=== PATIENT | male | born 1955 | race Caucasian/White ===

== ENCOUNTER 2016-11-13 17:17 | Emergency (ER) | payer BC ==
[2016-11-13] MEDS ORDERED: diPHENhydraMINE IV* 50 MG/ML 1 ml VIAL (BENADRYL) IV ONE (17:47)
[2016-11-13] MEDS ORDERED: Famotidine IV* 10 MG/ML 2 ML (20 mg) IV SLOW PU ONE (17:48)
[2016-11-13] MEDS ORDERED: methylPREDNISolone SOD SUCC* 125 MG 2 ML VIAL IV ONE (17:49)
[2016-11-13] MEDS ORDERED: NS 0.9% 1000 ML* 1,000 ML BOLUS SCH (18:30)
[2016-11-13 19:16] VITALS: BP 137/87
--- NOTE | 2016-11-13 20:26 | UC ---
Mirta Iglesias Janilya, scribed for Sveta Navarro MD on 11/13/16 at 1745 . Allergic Reaction HPI - HPI Summary HPI Summary: A 61 y/o male came in to [facility] presenting w/ a gradual onset of constant Sx of allergic rxn starting this morning at 1000. Pt was eating 2 hard boiled eggs and a jason bar at work when he developed the Sx. Pt reports swelling of lips and inside of his cheeks, and lisp that is abnormal for pt. Pt denies vomiting, diarrhea, any noticeable rashes or hives. No CP, SOB, throat tightening or hoarse voice. Pt denies taking MELISSA-inhibitors. PMHx of asthma on Advair. Has not had an asthma outbreak since 04-02-2001. Pt took one loratadine this afternoon approx 4pm without any improvement. - History of Current Complaint Chief Complaint: UCAllergicReaction Stated Complaint: MOUTH SWELLING,ALLERGIC REACTION Time Seen by Provider: 11/13/16 17:37 Hx Obtained From: Patient Onset/Duration: Gradual Onset, Lasting Days, Still Present Severity Initially: Moderate Severity Currently: Moderate Pain Intensity: 0 Pain Scale Used: 0-10 Numeric Location: Discrete @ - lips, inside mouth Character: Swelling Aggrevating Factor(s): Nothing Alleviating Factor(s): Nothing Associated Signs And Symptoms: Positive: Negative. Negative: Chest Pain, Cough Wheezing, Difficulty Breathing, Hoarseness, Nausea, Rash, Throat Tightening, Vomiting - Related Hx Possible Reaction To: Food - Allergies/Home Medications Allergies/Adverse Reactions: Allergies Allergy/AdvReac Type Severity Reaction Status Date / Time cats Allergy Mild itchy eyes Uncoded 05/17/16 09:08 asthma inducer PMH/Surg Hx/FS Hx/Imm Hx Previously Healthy: No Endocrine History Of: Denies: Diabetes, Thyroid Disease Cardiovascular History Of: Denies: Cardiac Disorders, Hypertension, Congestive Heart Failure Respiratory History Of: Reports: Asthma Denies: COPD GI/ History Of: Denies: Ulcer, Kidney Stones, Renal Disease - hx urinary incontinence - Surgical History Surgical History: Yes Surgery Procedure, Year, and Place: appendectomy,cyst on chest, urinary bladder device to relax bladder implanted 2009 and redone 2014 because of the defaulted battery. - Family History Known Family History: Positive: Hypertension, Other - ischemia of intestines - father - Social History Lives: With Family Alcohol Use: Rare Substance Use Type: None Smoking Status (MU): Never Smoked Tobacco Review of Systems Constitutional: Negative Skin: Other - pt denies any rashes or hives Eyes: Negative ENT: Other - swelling of lips and inside of cheeks, "lisp" Respiratory: Negative Cardiovascular: Negative Gastrointestinal: Negative - pt denies vomiting and diarrhea Genitourinary: Negative Motor: Negative Neurovascular: Negative Musculoskeletal: Negative Neurological: Negative Psychological: Negative All Other Systems Reviewed And Are Negative: Yes Physical Exam Triage Information Reviewed: Yes Appearance: Well-Appearing, No Pain Distress, Well-Nourished, Pain Distress Vital Signs: Initial Vital Signs Temp 98.7 F 11/13/16 17:23 Pulse 88 11/13/16 17:23 Resp 20 11/13/16 17:23 BP 152/97 11/13/16 17:23 Pulse Ox 98 11/13/16 17:23 elevated BP due to acute allergic reaction Vital Signs Reviewed: Yes Eyes: Positive: Conjunctiva Clear ENT: Positive: Hearing grossly normal, Other: - swollen lips and swollen uvula. Negative: Muffled/hoarse voice Neck: Positive: Supple, Nontender, No Lymphadenopathy Respiratory: Positive: Lungs clear, Normal breath sounds, No respiratory distress. Negative: Wheezing Cardiovascular: Positive: RRR, No Murmur, Pulses Normal, Brisk Capillary Refill Musculoskeletal: Positive: Strength Intact, ROM Intact Neurological: Positive: Alert, Muscle Tone Normal Psychological Exam: Normal Skin Exam: Normal Re-Evaluation - Re-Evaluation First Eval Re-Evaluation Time: 19:00 Change: Improved - lips less swollen, can see creases. Pt feels better. Allergic Reaction Course/Dx - Course Course Of Treatment: Pt given benadryl 50mg IV, solumedrol 125mg IV and pepcid 20mg IV with improvement of symptoms. - Differential Dx/Diagnosis Differential Diagnosis/HQI/PQRI: Airway Obstruction, Anaphylaxis, Local Allergic Reaction Provider Diagnoses: Acute generalized allergic reaction. Elevated blood pressure w/o hx of HTN, Allergy-associated Discharge - Discharge Plan Condition: Stable Disposition: HOME Prescriptions: Albuterol HFA INHALER* [Ventolin HFA Inhaler*] 2 puff INH Q4H PRN #1 mdi PRN Reason: Wheezing Famotidine TAB 40 MG(NF) [Pepcid TAB 40 MG(NF)] 40 mg PO DAILY #5 tab predniSONE TAB* [Deltasone TAB*] 40 mg PO DAILY #10 tab Patient Education Materials: General Allergic Reaction (ED) Referrals: Ilir Burr NP [Primary Care Provider] - Sarah Rocha MD [Medical Doctor] - 2 Days Additional Instructions: You should follow up with allergy and asthma associates to help determine what might be the cause of this allergic reaction. Take bendaryl 50mg four times a day for 48 hrs, then as needed. Take the prescribed medications as directed, starting tomorrow. Go to the emergency room if you have any new or worsening symptoms. The documentation as recorded by the Mirta arango Janilya accurately reflects the service I personally performed and the decisions made by , Sveta Navarro MD.
== END 2016-11-13 19:40 | disposition home or self-care (01) ==
LOC: UCEAST 17:17
DX: T78.40XA Allergy, unspecified, initial encounter (principal); X58.XXXA Exposure to other specified factors, initial encounter; R03.0 Elevated blood-pressure reading, without diagnosis of hypertension; J45.909 Unspecified asthma, uncomplicated
CPT/HCPCS: 96360; 96374; 96375; 99212; G0463; J1200; J2930

== ENCOUNTER 2016-12-30 12:16 | Emergency (ER) | payer BC ==
[2016-12-30] MEDS ORDERED: diPHENhydraMINE PO* 50 MG PO ONE (12:27)
[2016-12-30] MEDS ORDERED: EPINEPHrine AMP 1 MG/ML IM ONE (12:27)
[2016-12-30] MEDS ORDERED: methylPREDNISolone 125 MG* 2 ML VIAL IM ONE (12:27)
[2016-12-30 12:35] VITALS: BP 106/84
[2016-12-30] MEDS ORDERED: Famotidine TAB* 20 MG PO ONE (12:51)
--- NOTE | 2016-12-30 12:59 | UC ---
Allergic Reaction HPI - HPI Summary HPI Summary: ONSET OF UPPER AND LOWER LIP SWELLING TODAY AROUND 10:30AM GETTING WORSE. TOOK AN ALEVE AROUND 9AM. TAKES THIS ABOUT ONCE PER MONTH AND HAS NEVER HAD A REACTION. NO NEW FOODS OR EXPOSURES HE IS AWARE OF. NO NEW MEDS. DOES NOT TAKE ACEI. HAD SIMILAR SX END OF OCTOBER BUT STATES THEY WERE WORSE AT THAT TIME. DID NOT FOLLOW-UP WITH AN ICT EDUCATOR. - History of Current Complaint Chief Complaint: UCAllergicReaction Stated Complaint: ALLERGIC REACTION Time Seen by Provider: 12/30/16 12:27 Hx Obtained From: Patient, Family/Clinical Research Administrator - Onset/Duration: Sudden Onset, Lasting Hours, Still Present Severity Initially: Moderate Severity Currently: Moderate Pain Intensity: 0 Pain Scale Used: 0-10 Numeric Location: Discrete @ - LIPS Character: Swelling, Pruritus Aggrevating Factor(s): Nothing Alleviating Factor(s): Nothing Associated Signs And Symptoms: Positive: Negative - Allergies/Home Medications Allergies/Adverse Reactions: Allergies Allergy/AdvReac Type Severity Reaction Status Date / Time cats Allergy Mild itchy eyes Uncoded 12/30/16 12:36 asthma inducer PMH/Surg Hx/FS Hx/Imm Hx Respiratory History: Asthma - Surgical History Surgical History: Yes Surgery Procedure, Year, and Place: appendectomy,cyst on chest, urinary bladder device to relax bladder implanted 2009 and redone 2014 because of the defaulted battery. - Family History Known Family History: Positive: Hypertension, Other - ischemia of intestines - father - Social History Alcohol Use: Rare Substance Use Type: None Smoking Status (MU): Never Smoked Tobacco Review of Systems Constitutional: Negative Skin: Other - LIP SWELLING Respiratory: Negative Cardiovascular: Negative Gastrointestinal: Negative All Other Systems Reviewed And Are Negative: Yes Physical Exam Triage Information Reviewed: Yes Appearance: Well-Appearing, No Pain Distress, Well-Nourished Vital Signs: Initial Vital Signs Temp 98.7 F 12/30/16 12:22 Pulse 85 12/30/16 12:22 Resp 20 12/30/16 12:22 BP 106/84 12/30/16 12:22 Pulse Ox 94 12/30/16 12:22 Vital Signs Reviewed: Yes Eyes: Positive: Conjunctiva Clear ENT: Positive: Hearing grossly normal, Pharynx normal Neck: Positive: Supple, Nontender, No Lymphadenopathy Respiratory Exam: Normal Respiratory: Positive: Other: - REPEAT O2 SAT 98% Cardiovascular Exam: Normal Abdomen Description: Positive: Soft Musculoskeletal: Positive: No Edema Neurological: Positive: Alert Psychological: Positive: Normal Response To Family, Age Appropriate Behavior Skin: Negative: rashes Re-Evaluation - Re-Evaluation First Eval Re-Evaluation Time: 14:10 - LIP SWELLING SIGNIFICANTLY IMPROVED AFTER EPI, SOLU- MEDROL, BENDRYL AND PEPCID Change: Improved Allergic Reaction Course/Dx - Differential Dx/Diagnosis Provider Diagnoses: ANGIOEDEMA Discharge - Discharge Plan Condition: Stable Disposition: HOME Prescriptions: Famotidine TAB 40 MG(NF) [Pepcid TAB 40 MG(NF)] 40 mg PO DAILY #10 tab predniSONE TAB* [Deltasone TAB*] 40 mg PO DAILY #10 tab Patient Education Materials: Angioedema (ED) Referrals: Ilir Burr NP [Primary Care Provider] - If Needed Additional Instructions: TAKE OTC ANTIHISTAMINE DAILY (CLARITIN (LORATADINE), ZYRTEC (CETIRIZINE) OR EVELYN (FEXOFENADINE) IN THE MORNING, BENADRYL AT NIGHT) FOLLOW-UP WITH AN ICT EDUCATOR. [facility] Address: [facility] [address], [place] [address] [facility] [address] [place] [address] [address], [address] [place] [address]
== END 2016-12-30 14:19 | disposition home or self-care (01) ==
LOC: UCEAST 12:16
DX: T78.3XXA Angioneurotic edema, initial encounter (principal); J45.909 Unspecified asthma, uncomplicated
CPT/HCPCS: 96372; 99212; A9270-GY; G0463; J0171; J2930

== ENCOUNTER 2017-01-24 09:00 | Emergency (ER) | payer BC ==
[2017-01-24] MEDS ORDERED: methylPREDNISolone 125 MG* 2 ML VIAL IV ONE (09:25)
[2017-01-24] MEDS ORDERED: Famotidine IV* 10 MG/ML 2 ML (20 mg) IV SLOW PU ONE (09:25)
[2017-01-24] MEDS ORDERED: NS 0.9% 1000 ML* 1,000 ML IV ONE (09:25)
[2017-01-24] MEDS ORDERED: diPHENhydraMINE IV* 50 MG/ML 1 ml VIAL (BENADRYL) IV ONE (09:25)
--- NOTE | 2017-01-24 09:26 | UC ---
quinn Iglesias Timothy, scribed for Mary Guo MD on 01/24/17 at 0923 . Allergic Reaction HPI - HPI Summary HPI Summary: Raul Ashley is a 61 yo male presenting to [facility] with swelling around his right side of his mouth extending up to his right eye since 0730 this morning. The area is not pruritic or painful. No difficulty swallowing, breathing, tongue edema. Pt states took an Aleve prior to sx. Pt self-medicated with loratadine at 0800. Pt states that this has happened 3x since October, and he has seen an rag cutting machine feeder. His rag cutting machine feeder has not given him a definitive reason for his allergies, but ordered some blood testing and thought may be related to food. He has a Rx for epi pen but has not picked it up yet. Pt denies cp, lightheadedness, nausea, vomiting. Pt drove self to [facility] His MHx includes asthma , sleep apnea, urinary incontinence, hematuria. Pt medication list reviewed this visit. - History of Current Complaint Stated Complaint: ALLERGIC REACTION Time Seen by Provider: 01/24/17 09:17 Hx Obtained From: Patient Onset/Duration: Sudden Onset, Lasting Hours, Still Present Severity Initially: Moderate Severity Currently: Moderate Pain Intensity: 0 Pain Scale Used: 0-10 Numeric Location: Discrete @ - face Character: Swelling Aggrevating Factor(s): Nothing Alleviating Factor(s): Nothing Associated Signs And Symptoms: Positive: Negative - Allergies/Home Medications Allergies/Adverse Reactions: Allergies Allergy/AdvReac Type Severity Reaction Status Date / Time cats Allergy Mild itchy eyes Uncoded 12/30/16 12:36 asthma inducer Home Medications: Home Medications Fluticasone-Salmeterol 250-50* [Advair Diskus 250-50*] 01/24/17 [History] Multiple Vitamin [Multi Vitamin] 01/24/17 [History] PMH/Surg Hx/FS Hx/Imm Hx Previously Healthy: Yes Respiratory History: Asthma - Surgical History Surgical History: Yes Surgery Procedure, Year, and Place: appendectomy,cyst on chest, urinary bladder device to relax bladder implanted 2009 and redone 2014 because of the defaulted battery. - Family History Known Family History: Positive: Hypertension, Other - ischemia of intestines - father - Social History Occupation: Employed Full-time Lives: With Family Alcohol Use: Rare Substance Use Type: None Smoking Status (MU): Never Smoked Tobacco Review of Systems Constitutional: Negative Skin: Other - swelling from right side of mouth to right eye Eyes: Negative ENT: Negative Respiratory: Negative Cardiovascular: Negative Gastrointestinal: Negative Genitourinary: Negative Motor: Negative Neurovascular: Negative Musculoskeletal: Negative Neurological: Negative Psychological: Negative All Other Systems Reviewed And Are Negative: Yes Physical Exam Triage Information Reviewed: Yes Appearance: Well-Appearing, No Pain Distress, Well-Nourished Vital Signs: Initial Vital Signs Temp 96 F 01/24/17 09:07 Pulse 65 01/24/17 09:07 Resp 16 01/24/17 09:07 BP 130/80 01/24/17 09:07 Pulse Ox 98 01/24/17 09:07 Vital Signs Reviewed: Yes Eyes: Positive: Other: - mild edema b/l inferior eyelids ENT Exam: Normal ENT: Positive: Hearing grossly normal, TMs normal, Other: - mild edema right upper right lip - no intraoral edema, no tongue edema Dental Exam: Normal Neck exam: Normal Neck: Positive: Supple, Nontender, No Lymphadenopathy Respiratory Exam: Normal Respiratory: Positive: Chest non-tender, Lungs clear, Normal breath sounds, No respiratory distress. Negative: Wheezing Cardiovascular Exam: Normal Cardiovascular: Positive: RRR, No Murmur Abdominal Exam: Normal Abdomen Description: Positive: Nontender, No Organomegaly, Soft Bowel Sounds: Positive: Present Musculoskeletal Exam: Normal Neurological Exam: Normal Psychological Exam: Normal Skin Exam: Normal Re-Evaluation - Re-Evaluation First Eval Re-Evaluation Time: 10:14 Change: Improved Comment: Pt condition is improved, his swelling has decreased. No futher complaints or progession Second Eval Re-Evaluation Time: 10:56 Change: Improved Comment: Pt condition is improved; edema improved. taking po Allergic Reaction Course/Dx - Course Course Of Treatment: Raul Ashley is a 61 yo male presenting to [facility] with swelling from his right side of his mouth to his right eye, with no respiratory complaints. lip edema but no intraoral edema. Will give pepcid, solumedrol, benadryl, close reassessment - Differential Dx/Diagnosis Differential Diagnosis/HQI/PQRI: Local Allergic Reaction Provider Diagnoses: allergic reaction Discharge - Discharge Plan Condition: Stable Disposition: HOME Prescriptions: Famotidine TAB* [Pepcid 20 MG TAB*] 20 mg PO BID #14 tab predniSONE TAB* [Deltasone TAB*] 50 mg PO DAILY #5 tab Patient Education Materials: General Allergic Reaction (ED) Referrals: Ilir Burr NP [Primary Care Provider] - 2 Days Additional Instructions: - Take prednisone exactly as prescribed until gone - Okay to take Benadryl (25mg) every 6-8 hours for the first day, then every 6- 8 hours as needed. - this may cause drowsiness - Apply cool soaks to that areas of rash and itching - Avoid getting overheated - hot showers, hot tubs, exercise for the next 2 days - Avoid NSAIDS (motrin, advil, ibuprofen, aleve) for 5 days - Stay well hydrated - drink plenty of non-alcoholic, non-caffinated beverages - Contact your oracle bpm developer to discuss care and return with questions or concerns Please follow up with your primary care physician and your rag cutting machine feeder regarding your visit [facility] today. Return to urgent care with any new symptoms or questions or concerns. The documentation as recorded by the quinn arango Timothy accurately reflects the service I personally performed and the decisions made by me, Mary Guo MD.
[2017-01-24 11:14] VITALS: BP 119/73
== END 2017-01-24 11:18 | disposition home or self-care (01) ==
LOC: UCEAST 09:00
DX: T78.40XA Allergy, unspecified, initial encounter (principal)
CPT/HCPCS: 96361; 96374; 96375; 99212; G0463; J1200; J2930